=== PATIENT | female | born 1985 | race Caucasian/White ===

== ENCOUNTER 2016-05-12 22:29 | Emergency (ER) | payer OTHER ==
--- NOTE | ~2016-05-12 | ER ---
PATIENT'S NAME: RADHAMES FORREST [facility] AGE: 30 [address] ROOM: [place] [id number] LOCATION: [facility] ADMIT DATE: 05/12/2016 ER/Outpatient Report DISCHARGE DATE: 05/13/2016 FAMILY PHYSICIAN: PHYSICIAN, NO ATTENDING PHYSICIAN: Vinod Wright Admission date and time documented in medical record. I saw the patient at 2345 hours. CHIEF COMPLAINT: Nausea, vomiting, diarrhea, intrauterine at 19 weeks gestation. HISTORY OF PRESENT ILLNESS: The patient is a 30-year-old female, who is 19 weeks gestation with her present . She is a 7, para 1-0-5-1. She has had intermittent nausea and vomiting especially during her first trimester. This episode started on this past Friday. She has had up to 2-3 episodes of vomiting daily. She has also had some loose stools. No blood in her vomitus. No blood in her stool. No fever, chills, or sweats. No chest pain or shortness of breath. She did have a little bit of lightheadedness and dizziness late last week. She had a kind of a near syncopal episode, but no syncope. No fall or trauma. No headache, eyes, ears, nose, throat, neck, or spine pain. No chest pain or shortness of breath. No real back pain. No true abdominal pain just the nausea, vomiting, and diarrhea. No urinary, frequency, urgency, or dysuria. No joint or muscle swelling. No skin eruptions or rash. She does have lupus asthma. OPERATIONS: 1. Cholecystectomy. 2. . 3. D and C. REVIEW OF SYSTEMS: All systems reviewed by me are negative with the exception of those discussed in the history of present illness. PHYSICAL EXAMINATION: VITAL SIGNS: Temperature 98.7 tympanic, pulse 94, respirations 18, blood pressure 117/70, O2 saturation on room air is 99%. HEAD: Normocephalic. EYES, EARS, NOSE, THROAT: Clear. Mucous membranes moist. NECK: Negative. SPINE: Negative. LUNGS: Clear. HEART: Regular. Pulses palpable. PATIENT'S NAME: RADHAMES FORREST [facility] AGE: 30 Y [address] ROOM: [place] [id number] LOCATION: [facility] ADMIT DATE: 05/12/2016 ER/Outpatient Report DISCHARGE DATE: 05/13/2016 FAMILY PHYSICIAN: PHYSICIAN, NO ATTENDING PHYSICIAN: Vinod Wright ABDOMEN: Gravid, heart tones 156-164. Good bowel tones. No organomegaly or abnormal mass palpable. No CVA tenderness. EXTREMITIES: Intact. Neurovascularly intact. SKIN: Clear. No skin eruptions or rash. LABORATORY DATA: CMS was normal except for slight low potassium of 3.5, low CO2 content of 17, low calcium of 8.1, BUN was 3, creatinine 0.5, GFR greater than 60. Urine showed negative whites, negative reds, 20-50 epithelial cells, moderate bacteria per high-powered field, negative nitrites. Negative glucose. Negative ketones and 15 protein. White count was 7800, 70 segs, 16 lymphs, 11 monos, 2 eos, 1 baso. Hemoglobin 12.6, hematocrit 36.5, platelet count 212,000. EMERGENCY DEPARTMENT COURSE: Did give the patient 1 L normal saline IV in the emergency room and Zofran 4 mg IV in the emergency room. IMPRESSION: 1. Intrauterine 19 weeks gestation with nausea, vomiting, diarrhea. No evidence of dehydration. No evidence of infective process, viral or bacterial. Electrolytes were normal. Blood sugar was normal. PLAN: The patient dismissed home after fluids were in. Fluids and diet as tolerated. Bedrest as needed. Continue home medications and care. Zofran or Phenergan as needed for nausea and vomiting. Follow up with personal physician as needed or as scheduled. Discussion ensued with the patient concerning my findings and recommendations, she understands. VINOD WRIGHT MD SDS/modl /[id number] d: 05/13/16 0155 t: 05/13/16 1823, OUTPATIENT REPORT
[2016-05-12 23:56] LABS: BILIRUBIN URINE NEGATIVE (NEGATIVE); BLOOD URINE NEGATIVE /UL (NEGATIVE); COLOR URINE YELLOW (YELLOW); GLUCOSE URINE NEGATIVE (NEGATIVE); KETONE URINE NEGATIVE (NEGATIVE); LEUKOCYTES URINE NEGATIVE /UL (NEGATIVE); NITRITE URINE NEGATIVE (NEGATIVE); PROTEIN URINE 15 mg/dL (NEGATIVE); UROBILINOGEN URINE NORMAL (NORMAL)
[2016-05-12 23:57] LABS: TURBIDITY URINE CLEAR (CLEAR)
[2016-05-13 00:24] LABS: BACTERIA URINE MODERATE (NEGATIVE); EPITHELIAL URINE 20-50 #/HPF (NEGATIVE); RBC URINE NEGATIVE #/HPF (NEGATIVE); WBC URINE NEGATIVE #/HPF (NEGATIVE)
[2016-05-13 00:42] LABS: BASOPHIL % 0.5 %; EOSINOPHIL # 0.1 K/uL (0.0-0.5); EOSINOPHIL % 1.7 %; HEMATOCRIT 36.5 % (33.0-46.0); HEMOGLOBIN 12.6 g/dL (11.0-15.0); IMMATURE GRANULOCYTE # 0.1 K/uL (0.0-0.3); IMMATURE GRANULOCYTE % 1.4 %; LYMPHOCYTE # 1.2 K/uL (0.8-4.0); LYMPHOCYTE % 15.6 %; MCH 30.8 pg (27.0-34.0); MCHC 34.5 gm/dL (32.0-36.5); MCV 89.2 fl (83.0-98.0); MONOCYTE # 0.9 K/uL (0.0-1.0); MONOCYTE % 11.2 %; MPV 9.8 fl (9.4-12.4); NEUTROPHIL # (ANC) 5.5 K/uL (1.8-7.8); NEUTROPHIL % 69.6 %; NRBC % 0 /100WBC (0-0.00); PLATELET COUNT 212 K/uL (150-450); RBC 4.09 M/uL (3.50-5.50); RDW-CV 12.2 % (11.9-14.6); WBC 7.8 K/uL (4.0-11.0)
[2016-05-13 00:59] LABS: ALBUMIN 2.7 gm/dL (3.5-5.0); ALK PHOS 86 IU/L (33-138); ALT 40 IU/L (12-78); ANION GAP 16.5 (10.0-19.0); AST 26 IU/L (10-40); BLOOD UREA NITROGEN 3 mg/dL (6-24); CALCIUM 8.1 mg/dL (8.5-10.5); CHLORIDE 108 mMol/L (96-110); CREATININE 0.5 mg/dL (0.5-1.1); ESTIMATED GFR (MDRD EQUATION) > 60; POTASSIUM 3.5 mMol/L (3.7-5.1); SODIUM 138 mMol/L (135-145); TOTAL BILIRUBIN 0.2 mg/dL (0.0-1.5); TOTAL PROTEIN 6.7 g/dL (6.0-8.4)
[2016-05-13 01:06] LABS: CO2 17 mMol/L (22-32)
== END 2016-05-13 01:35 | disposition disaster alternative care site (69) ==
LOC: GMED 22:29
PROVIDERS: Emergency Medicine
DX: O21.9 Vomiting of pregnancy, unspecified (principal); O99.89 Other specified diseases and conditions complicating pregnancy, childbirth and the puerperium; R19.7 Diarrhea, unspecified; Z3A.19 19 weeks gestation of pregnancy; Z90.49 Acquired absence of other specified parts of digestive tract; Z98.890 Other specified postprocedural states
CPT/HCPCS: J2405; J7030